=== PATIENT | female | born 1965 | race Caucasian/White ===

== ENCOUNTER 2018-02-01 21:30 | Inpatient (IN) | payer BC ==
[~2018-02-01] VITALS: Ht 172.7 cm; Wt 63.0 kg
[~2018-02-01 21:30] MED LIST: MULTIPLE VITAM1 EAC4 PO
[2018-02-02 12:30] VITALS: BP 116/79
[2018-02-02 20:26] VITALS: BP 129/79
[2018-02-02 20:59] LABS: HEMATOCRIT 37.2 % (36.0-46.0); HEMOGLOBIN 12.4 G/DL (11.9-15.5); MCHC 33.3 G/DL (30.0-36.0); MCV 87.1 FL (83-99); PLATELET COUNT 227 K/uL (156-360); RBC DIS.WIDTH-CV 12.4 % (11.8-14.6); RBC DIS.WIDTH-SD 39.8 % (39-53); RED BLOOD COUNT 4.27 M/uL (3.80-5.20); WHITE BLOOD COUNT 10.9 K/uL (4.1-10.2)
[2018-02-02 21:32] LABS: CHLORIDE 104 MEQ/L (99-109); CREATININE 0.7 MG/DL (0.6-1.3); GFR ESTIMATE (CALCULATED) > 59 mL/min/; GLUCOSE 172 mg/dL (70-99); POTASSIUM 3.7 MEQ/L (3.7-5.4); SODIUM 138 MEQ/L (136-147); UREA NITROGEN (BUN) 11 mg/dL (9-23)
[2018-02-03 00:08] VITALS: BP 103/68
[2018-02-03 04:27] VITALS: BP 98/53
[2018-02-03 05:54] LABS: HEMATOCRIT 36.5 % (36.0-46.0); HEMOGLOBIN 11.6 G/DL (11.9-15.5); MCHC 31.8 G/DL (30.0-36.0); PLATELET COUNT 246 K/uL (156-360); RBC DIS.WIDTH-CV 12.3 % (11.8-14.6); RBC DIS.WIDTH-SD 39.7 % (39-53); RED BLOOD COUNT 4.15 M/uL (3.80-5.20); WHITE BLOOD COUNT 8.2 K/uL (4.1-10.2)
[2018-02-03 06:16] LABS: CHLORIDE 98 MEQ/L (99-109); CREATININE 0.7 MG/DL (0.6-1.3); GFR ESTIMATE (CALCULATED) > 59 mL/min/; GLUCOSE 142 mg/dL (70-99); SODIUM 133 MEQ/L (136-147); UREA NITROGEN (BUN) 9 mg/dL (9-23)
[2018-02-03 06:17] LABS: POTASSIUM 4.5 MEQ/L (3.7-5.4)
[2018-02-03 08:27] VITALS: BP 98/58
[2018-02-03 15:34] VITALS: BP 108/65
[2018-02-03 19:47] VITALS: BP 112/68
[2018-02-04 00:24] VITALS: BP 120/72
[2018-02-04 04:14] VITALS: BP 111/60
[2018-02-04 07:28] LABS: HEMATOCRIT 32.9 % (36.0-46.0); HEMOGLOBIN 10.9 G/DL (11.9-15.5); MCH 28.7 PG (29.0-34.0); MCHC 33.1 G/DL (30.0-36.0); MCV 86.6 FL (83-99); PLATELET COUNT 193 K/uL (156-360); RBC DIS.WIDTH-CV 12.7 % (11.8-14.6); RBC DIS.WIDTH-SD 40.1 % (39-53); WHITE BLOOD COUNT 10.5 K/uL (4.1-10.2)
[2018-02-04 08:29] VITALS: BP 109/67
[2018-02-04] MEDS ORDERED: TRAMADOL HCL50 MG PO (08:44)
[2018-02-04 08:52] LABS: CHLORIDE 96 MEQ/L (99-109); CREATININE 0.7 MG/DL (0.6-1.3); GFR ESTIMATE (CALCULATED) > 59 mL/min/; GLUCOSE 118 mg/dL (70-99); POTASSIUM 4.6 MEQ/L (3.7-5.4); SODIUM 131 MEQ/L (136-147); UREA NITROGEN (BUN) 5 mg/dL (9-23)
[2018-02-04 09:00] VITALS: BP 109/67
== END 2018-02-04 11:10 | disposition home or self-care (01) | DRG 738 ==
LOC: ENRESERV 21:30 → 2SOUTH 02-02 08:29 → 2EAST 02-02 11:57 → 2SOUTH 02-02 14:57 → ENRESERV 02-02 17:57 → 2EAST 02-02 19:55
PROVIDERS: Obstetrics & Gynecology Gynecologic Oncology
PROC: 0UT20ZZ Resection of Bilateral Ovaries, Open Approach (ICD-10-PCS; principal; 2018-02-02)
PROC: 07BC0ZX Excision of Pelvis Lymphatic, Open Approach, Diagnostic (ICD-10-PCS; principal; 2018-02-02)
PROC: 0DBU0ZZ Excision of Omentum, Open Approach (ICD-10-PCS; principal; 2018-02-02)
PROC: 0UT90ZZ Resection of Uterus, Open Approach (ICD-10-PCS; principal; 2018-02-02)
PROC: 0UT70ZZ Resection of Bilateral Fallopian Tubes, Open Approach (ICD-10-PCS; principal; 2018-02-02)
PROC: 0TN60ZZ Release Right Ureter, Open Approach (ICD-10-PCS; principal; 2018-02-02)
DX: C56.2 Malignant neoplasm of left ovary (principal); C56.1 Malignant neoplasm of right ovary; N13.5 Crossing vessel and stricture of ureter without hydronephrosis; N80.9 Endometriosis, unspecified; E03.4 Atrophy of thyroid (acquired); Z87.891 Personal history of nicotine dependence
CPT/HCPCS: 36415; 80048; 85014; 85018; 85027; 86850; 86900; 86901; 86920; 88108; 88160; 88305; 88307; 94799; J0131; J0690; J1100; J1170; J1650; J1885; J2250; J2405; J2710; J2765; J2795; J3010; J7643